=== PATIENT | female | born 1995 | race African-American/Black ===

== ENCOUNTER 2024-05-29 17:31 | Inpatient (IN) | payer OTHER ==
[2024-05-29 18:07] LABS: BASO % 0.4 % (0-2.0); EOS % 0.3 % (0-4.5); HEMATOCRIT 50.6 % (32.4-45.2); HEMOGLOBIN 16.2 GM/dL (10.7-15.3); MCH 23.2 pg (25.7-33.7); MEAN CELL VOLUME 72.5 fl (80-96); MEAN PLT VOLUME 8.5 fl (7.5-11.1); MONO % 13.6 % (3.8-10.2); NEUT % 63.7 % (42.8-82.8); PLATELET COUNT 397 10^3/uL (134-434); RBC 6.99 M/mm3 (3.60-5.2); RDW 14.1 % (11.6-15.6); WHITE BLOOD COUNT 8.9 K/mm3 (4.0-10.0)
[2024-05-29 18:08] LABS: VENOUS BASE EXCESS 4.9 mmol/L (-2-2); VENOUS O2 SATURATION 59.1 % (70-80); VENOUS PCO2 37.2 mmHg (38-52); VENOUS PH 7.496 (7.310-7.410)
[2024-05-29 18:33] LABS: LACTIC ACID 2.4 mmol/L (0.4-2.0)
[2024-05-29] MEDS: SODIUM CHLORIDE 1,000 ML IV STA (18:33)
[2024-05-29] MEDS ORDERED: ONDANSETRON 4 MG/2 ML VIAL ONE ×2 (19:05→23:17)
[2024-05-29] MEDS: ONDANSETRON 4 MG/2 ML VIAL IVPUSH ONE (19:09)
[2024-05-29 19:12] LABS: INR 2.06 (0.83-1.09); PROTHROMBIN TIME (PATIENT) 22.5 SEC (9.7-13.0)
[2024-05-29 19:15] LABS: ACTIVATED PTT 27.3 SECONDS (25.2-36.5)
[2024-05-29 19:16] LABS: POTASSIUM 5.2 mmol/L (3.5-5.1)
[2024-05-29 19:19] LABS: CALCIUM 8.8 mg/dL (8.5-10.1)
[2024-05-29 19:20] LABS: ALBUMIN 3.1 g/dl (3.4-5.0); BLOOD UREA NITROGEN 26.2 mg/dL (7-18)
[2024-05-29 19:24] LABS: LACTIC ACID 2.1 mmol/L (0.4-2.0)
[2024-05-29 19:29] LABS: TOT PROT 8.8 g/dl (6.4-8.2)
[2024-05-29] MEDS ORDERED: AZITHROMYCIN IVPB 500 MG/250 ML BAG IVPB ONE (19:57)
[2024-05-29] MEDS ORDERED: CEFTRIAXONE 1 G/50 ML PREMIX 50 ML IVPB ONE (19:57)
[2024-05-29] MEDS: CEFTRIAXONE 1 GM in DEXTROSE 5%-WATER - 100 ML IVPB ONE (19:57)
[2024-05-29] MEDS: AZITHROMYCIN IVPB 500 MG in DEXTROSE 5%-WATER - 250 ML IVPB ONE (20:20)
[2024-05-29] MEDS: SODIUM CHLORIDE 1,000 ML IV SCH (21:13)
[2024-05-29 22:15] LABS: ARTERIAL BLD GAS O2 SATURATION 99.7 % (95-98); ARTERIAL BLOOD GAS BASE EXCESS 0.3 mmol/L (-2-2); ARTERIAL BLOOD GAS pH 7.421 (7.350-7.450)
[2024-05-29 22:20] LABS: INR 2.06 (0.83-1.09); PROTHROMBIN TIME (PATIENT) 22.4 SEC (9.7-13.0)
[2024-05-29 22:30] LABS: ALLENS TEST POSITIVE
[2024-05-29] MEDS: SULFAMETHOXAZOLE 80 MG/TRIMETHOPRIM 16 MG/ML VIAL IVPB SCH (23:07)
[2024-05-29 23:08] LABS: ERYTHROCYTE SEDIMENTATION RATE 44 mm/hr (0-20)
[2024-05-29] MEDS: TRIMETHOPRIM IVPB SCH (23:14)
[2024-05-29] MEDS: DEXTROSE 5% IVPB SCH (23:14)
[2024-05-29] MEDS: SULFAMETHOXAZOLE IVPB SCH (23:14)
[2024-05-29] MEDS: WATER IVPB SCH (23:14)
[2024-05-29] MEDS ORDERED: ACETAMINOPHEN INJECTION 100 ML ONE (23:17)
[2024-05-30 00:03] LABS: HIV INTERPRETATION PRESUMPTIVE POSITIVE (NEGATIVE)
[2024-05-30] MEDS: ACETAMINOPHEN 1000 MG/100 ML BAG IVPB ONE (01:04)
[2024-05-30] MEDS: ONDANSETRON 4 MG/2 ML VIAL IVPUSH PRN (01:05)
[2024-05-30 02:30] LABS: URINE APPEARANCE CLEAR; URINE BILIRUBIN SMALL (NEGATIVE); URINE COLOR YELLOW; URINE GLUCOSE (UA) NEGATIVE (NEGATIVE)
[2024-05-30 02:31] LABS: PH,URINE 6.5 (5.0-8.0); URINE KETONE 15 mg/dl (NEGATIVE); URINE PROTEIN 1+ (NEGATIVE)
[2024-05-30 02:32] LABS: EPI CELLS 38.1 /uL (0-25.1); HYALINE CASTS 1.09 /uL (0-3.1); URINE BACTERIA 213.5 /uL (0-1359); URINE LEUK ESTERASE NEGATIVE (NEGATIVE); URINE NITRITE NEGATIVE (NEGATIVE)
[2024-05-30 02:43] LABS: COCAINE, UR NEGATIVE (NEGATIVE); METHADONE, UR NEGATIVE (NEGATIVE); OPIATES, URI NEGATIVE (NEGATIVE); URINE AMPHETAMINES NEGATIVE (NEGATIVE); URINE BARBITURATES NEGATIVE (NEGATIVE)
[2024-05-30 02:44] LABS: PHENCYCLIDINE,URINE NEGATIVE (NEGATIVE)
[2024-05-30 02:52] LABS: URINE BENZODIAZEPINES NEGATIVE (NEGATIVE)
[2024-05-30 07:53] LABS: SODIUM 135 mmol/L (136-145)
[2024-05-30 08:01] LABS: BLOOD UREA NITROGEN 14.6 mg/dL (7-18); CO2 28 mmol/L (21-32); GLUCOSE,RANDOM 138 mg/dL (74-106); MAGNESIUM 2.3 mg/dL (1.8-2.4)
[2024-05-30 08:03] LABS: BASO % 0.3 % (0-2.0); EOS % 1.8 % (0-4.5); HEMATOCRIT 35.5 % (32.4-45.2); LYMPH % 22.2 % (8-40); MCH 22.9 pg (25.7-33.7); MCHC 30.9 g/dl (32.0-36.0); MEAN CELL VOLUME 74.1 fl (80-96); MEAN PLT VOLUME 9.1 fl (7.5-11.1); MONO % 9.3 % (3.8-10.2); NEUT % 66.4 % (42.8-82.8); PLATELET COUNT 285 10^3/uL (134-434); RBC 4.79 M/mm3 (3.60-5.2); RDW 13.7 % (11.6-15.6); WHITE BLOOD COUNT 5.9 K/mm3 (4.0-10.0)
[2024-05-30 08:04] LABS: CREATININE 0.7 mg/dL (0.55-1.3); IRON SERUM 64 ug/dL (50-175); PHOSPHOROUS 3.6 mg/dL (2.5-4.9)
[2024-05-30 08:05] LABS: TOTAL IRON BINDING CAPACITY 209 ug/dL (250-450)
[2024-05-30] MEDS ORDERED: ONDANSETRON 4 MG/2 ML VIAL ONE ×2 (08:37→14:59)
[2024-05-30 08:41] LABS: LDH 205 U/L (84-246)
[2024-05-30 08:43] LABS: ANION GAP 5 mmol/L (4-13); CHLORIDE 102 mmol/L (98-107); POTASSIUM 2.9 mmol/L (3.5-5.1)
[2024-05-30] MEDS ORDERED: CEFTRIAXONE 1 G/50 ML PREMIX 50 ML IVPB ONE (09:14)
[2024-05-30] MEDS ORDERED: AZITHROMYCIN IVPB 500 MG/250 ML BAG IVPB ONE (09:15)
[2024-05-30] MEDS ORDERED: AZITHROMYCIN IVPB 500 MG in DEXTROSE 5%-WATER - 250 ML IVPB SCH (10:00)
[2024-05-30] MEDS: CEFTRIAXONE 1 G/50 ML PREMIX 50 ML IVPB SCH (10:00)
[2024-05-30] MEDS: AZITHROMYCIN IVPB 500 MG/250 ML BAG IVPB SCH (10:01)
[2024-05-30] MEDS: FLUCONAZOLE 100 MG TABLET (UD) PO SCH (10:59)
[2024-05-30] MEDS ORDERED: POTASSIUM CHLORIDE ORAL LIQUID 20 MEQ/15 ML ONE (11:01)
[2024-05-30] MEDS ORDERED: predniSONE 20 MG TABLET (UD) ONE (11:01)
[2024-05-30] MEDS ORDERED: ENOXAPARIN NA (PORCINE) 40 MG/0.4 ML DISP.SYRIN SQ ONE ×2 (11:02→12:44)
[2024-05-30] MEDS: POTASSIUM CHLORIDE ORAL LIQUID 20 MEQ/15 ML PO ONE (11:13)
[2024-05-30] MEDS: predniSONE 20 MG TABLET (UD) PO SCH (11:13)
[2024-05-30] MEDS: KCL 10 MEQ IVPB 10 MEQ/100 ML INFUS.BAG IVPB SCH (12:28)
[2024-05-30] MEDS: ENOXAPARIN NA (PORCINE) 40 MG/0.4 ML DISP.SYRIN SQ SCH (12:52)
[2024-05-30] MEDS ORDERED: KCL 10 MEQ IVPB 10 MEQ/100 ML INFUS.BAG IVPB ONE ×2 (14:43→17:51)
[2024-05-30] MEDS: SODIUM CHLORIDE 1,000 ML IV STA (20:21)
[2024-05-31 07:32] LABS: HEMATOCRIT 30.7 % (32.4-45.2); HEMOGLOBIN 9.4 GM/dL (10.7-15.3); MCH 22.8 pg (25.7-33.7); MCHC 30.7 g/dl (32.0-36.0); MEAN CELL VOLUME 74.1 fl (80-96); MEAN PLT VOLUME 9.3 fl (7.5-11.1); PLATELET COUNT 247 10^3/uL (134-434); RBC 4.14 M/mm3 (3.60-5.2); RDW 13.8 % (11.6-15.6); WHITE BLOOD COUNT 6.8 K/mm3 (4.0-10.0)
[2024-05-31 07:50] LABS: POTASSIUM 4.2 mmol/L (3.5-5.1)
[2024-05-31 07:55] LABS: BLOOD UREA NITROGEN 5.4 mg/dL (7-18)
[2024-05-31 07:58] LABS: CREATININE 0.5 mg/dL (0.55-1.3)
[2024-05-31 08:00] LABS: BILIRUBIN,TOTAL 0.4 mg/dL (0.2-1)
[2024-05-31 08:15] LABS: ALBUMIN 2.1 g/dl (3.4-5.0); TOT PROT 5.9 g/dl (6.4-8.2)
[2024-05-31] MEDS ORDERED: ALBUTEROL SO4 2.5/IPRATROPIUM 0.5 INH SOL 3 ML VIAL.NEB. NEB PRN (13:48)
[2024-05-31] MEDS ORDERED: guaiFENesin 600 MG TABLET.ER (FP) PO PRN (13:49)
[2024-05-31] MEDS: CHOLECALCIFEROL (VIT D3) 5000 UNITS (125 MCG) CAP PO SCH (15:38)
[2024-05-31 16:11] LABS: MYCOPLASMA PNEUMONIAE,IG G AB 139 U/mL (0-99); MYCOPLASMA PNEUMONIAE,IGM AB <770 U/mL (0-769)
[2024-05-31] MEDS ORDERED: MELATONIN 5 MG TABLETS PO PRN (22:49)
[2024-06-01 08:45] LABS: HEMATOCRIT 32.1 % (32.4-45.2); HEMOGLOBIN 9.6 GM/dL (10.7-15.3); MCH 22.4 pg (25.7-33.7); MEAN CELL VOLUME 74.6 fl (80-96); MEAN PLT VOLUME 9.3 fl (7.5-11.1); PLATELET COUNT 264 10^3/uL (134-434); RDW 14.1 % (11.6-15.6); WHITE BLOOD COUNT 9.6 K/mm3 (4.0-10.0)
[2024-06-01 08:58] LABS: ALBUMIN 2.2 g/dl (3.4-5.0); CALCIUM 8.5 mg/dL (8.5-10.1)
[2024-06-01 09:02] LABS: CREATININE 0.6 mg/dL (0.55-1.3)
[2024-06-01 09:03] LABS: BILIRUBIN,TOTAL 0.2 mg/dL (0.2-1); TOT PROT 6.1 g/dl (6.4-8.2)
[2024-06-01] MEDS: FLUCONAZOLE 100 MG TABLET (UD) PO SCH (10:09)
[2024-06-01] MEDS: ALBUTEROL SO4 2.5/IPRATROPIUM 0.5 INH SOL 3 ML VIAL.NEB. NEB SCH (11:50)
[2024-06-01] MEDS: METOCLOPRAMIDE HCL INJECTION 10 MG/2 ML VIAL IVPUSH PRN (13:34)
[2024-06-01] MEDS: FAMOTIDINE 20 MG TABLET PO SCH (15:57)
[2024-06-01] MEDS: SODIUM CHLORIDE 1,000 ML IV SCH (17:10)
[2024-06-01 20:07] LABS: ANTIGLOMERULAR BASEMENT MEN.AB <0.2 units (0.0-0.9); C-ANCA <1:20 titer (Neg:<1:20)
[2024-06-01] MEDS: guaiFENesin 600 MG TABLET.ER (FP) PO SCH (21:43)
[2024-06-02 09:56] LABS: HEMATOCRIT 34.1 % (32.4-45.2); HEMOGLOBIN 10.5 GM/dL (10.7-15.3); MCH 22.7 pg (25.7-33.7); MCHC 30.8 g/dl (32.0-36.0); MEAN CELL VOLUME 73.6 fl (80-96); MEAN PLT VOLUME 9.7 fl (7.5-11.1); PLATELET COUNT 278 10^3/uL (134-434); RBC 4.63 M/mm3 (3.60-5.2); RDW 14.3 % (11.6-15.6)
[2024-06-02 10:00] LABS: INR 1.9 (0.83-1.09); PROTHROMBIN TIME (PATIENT) 20.7 SEC (9.7-13.0)
[2024-06-02 10:19] LABS: POTASSIUM 5.8 mmol/L (3.5-5.1)
[2024-06-02 10:23] LABS: CALCIUM 8.5 mg/dL (8.5-10.1)
[2024-06-02 10:24] LABS: ALBUMIN 2.2 g/dl (3.4-5.0); BLOOD UREA NITROGEN 4.7 mg/dL (7-18)
[2024-06-02 10:27] LABS: CREATININE 0.7 mg/dL (0.55-1.3)
[2024-06-02 10:28] LABS: BILIRUBIN,TOTAL 0.4 mg/dL (0.2-1); TOT PROT 6.6 g/dl (6.4-8.2)
[2024-06-02 15:48] LABS: ARTERIAL BLD GAS O2 SATURATION 97.9 % (95-98); ARTERIAL BLOOD GAS BASE EXCESS -1.4 mmol/L (-2-2); ARTERIAL BLOOD GAS PO2 105.2 mmHg (80-100); ARTERIAL BLOOD GAS pH 7.405 (7.350-7.450)
[2024-06-02 15:50] LABS: ALLENS TEST POSITIVE
[2024-06-03 07:31] LABS: HEMATOCRIT 33.7 % (32.4-45.2); HEMOGLOBIN 10.4 GM/dL (10.7-15.3); MCH 22.6 pg (25.7-33.7); MCHC 30.9 g/dl (32.0-36.0); MEAN CELL VOLUME 73.4 fl (80-96); MEAN PLT VOLUME 8.9 fl (7.5-11.1); PLATELET COUNT 275 10^3/uL (134-434); RBC 4.59 M/mm3 (3.60-5.2); RDW 13.7 % (11.6-15.6); WHITE BLOOD COUNT 5.5 K/mm3 (4.0-10.0)
[2024-06-03 08:04] LABS: POTASSIUM 4.3 mmol/L (3.5-5.1)
[2024-06-03 08:08] LABS: ALBUMIN 2.3 g/dl (3.4-5.0); BLOOD UREA NITROGEN 5.2 mg/dL (7-18); MAGNESIUM 2.2 mg/dL (1.8-2.4)
[2024-06-03 08:11] LABS: CREATININE 0.6 mg/dL (0.55-1.3); PHOSPHOROUS 3.4 mg/dL (2.5-4.9)
[2024-06-03 08:12] LABS: BILIRUBIN,TOTAL 0.2 mg/dL (0.2-1); TOT PROT 6.7 g/dl (6.4-8.2)
[2024-06-03 08:27] LABS: INR 1.77 (0.83-1.09); PROTHROMBIN TIME (PATIENT) 19.5 SEC (9.7-13.0)
[2024-06-03 08:30] LABS: ACTIVATED PTT 25.4 SECONDS (25.2-36.5)
[2024-06-03] MEDS: BICTEGRAV/EMTRICIT/TENOFOV (BIKTARVY) 50-200-25 MG TABLET PO SCH (18:43)
[2024-06-04 09:02] LABS: HEMATOCRIT 34.6 % (32.4-45.2); HEMOGLOBIN 10.5 GM/dL (10.7-15.3); MCH 22.4 pg (25.7-33.7); MCHC 30.4 g/dl (32.0-36.0); MEAN CELL VOLUME 73.6 fl (80-96); PLATELET COUNT 291 10^3/uL (134-434); WHITE BLOOD COUNT 5.2 K/mm3 (4.0-10.0)
[2024-06-04 09:24] LABS: POTASSIUM 4.3 mmol/L (3.5-5.1)
[2024-06-04 09:34] LABS: CALCIUM 9.4 mg/dL (8.5-10.1)
[2024-06-04 09:35] LABS: ALBUMIN 2.5 g/dl (3.4-5.0); BLOOD UREA NITROGEN 6.6 mg/dL (7-18)
[2024-06-04 09:38] LABS: CREATININE 0.7 mg/dL (0.55-1.3)
[2024-06-04 09:40] LABS: BILIRUBIN,TOTAL 0.1 mg/dL (0.2-1); TOT PROT 6.9 g/dl (6.4-8.2)
[2024-06-04] MEDS: predniSONE 20 MG TABLET (UD) PO SCH (09:48)
[2024-06-05 08:48] LABS: HEMATOCRIT 37.5 % (32.4-45.2); HEMOGLOBIN 11.7 GM/dL (10.7-15.3); MCH 22.7 pg (25.7-33.7); MCHC 31.3 g/dl (32.0-36.0); MEAN CELL VOLUME 72.4 fl (80-96); MEAN PLT VOLUME 8.2 fl (7.5-11.1); PLATELET COUNT 280 10^3/uL (134-434); RBC 5.17 M/mm3 (3.60-5.2); RDW 13.9 % (11.6-15.6); WHITE BLOOD COUNT 4.4 K/mm3 (4.0-10.0)
[2024-06-05 09:05] LABS: POTASSIUM 3.5 mmol/L (3.5-5.1)
[2024-06-05 09:08] LABS: CALCIUM 9.7 mg/dL (8.5-10.1)
[2024-06-05 09:09] LABS: ALBUMIN 2.7 g/dl (3.4-5.0); MAGNESIUM 1.7 mg/dL (1.8-2.4)
[2024-06-05 09:12] LABS: CREATININE 0.6 mg/dL (0.55-1.3); PHOSPHOROUS 2.9 mg/dL (2.5-4.9)
[2024-06-05 09:13] LABS: BILIRUBIN,TOTAL 0.3 mg/dL (0.2-1); TOT PROT 7.1 g/dl (6.4-8.2)
[2024-06-05] MEDS: PANTOPRAZOLE 40 MG TABLET PO SCH (11:32)
[2024-06-05] MEDS: DEXTROSE 5%-0.45% SALINE 1,000 ML IV SCH (13:35)
[2024-06-05] MEDS: PROCHLORPERAZINE INJECTION 10 MG/2 ML VIAL IVPB PRN (13:42)
[2024-06-05] MEDS: INSULIN ASPART SLIDING SCALE (NOVOLOG) 1 VIAL SQ SCH (16:18)
[2024-06-05] MEDS: PANTOPRAZOLE SODIUM 40 MG VIAL IVPUSH SCH (16:20)
[2024-06-06 06:43] LABS: POTASSIUM 3.7 mmol/L (3.5-5.1)
[2024-06-06 06:45] LABS: CALCIUM 9.4 mg/dL (8.5-10.1)
[2024-06-06 06:46] LABS: ALBUMIN 2.6 g/dl (3.4-5.0); BLOOD UREA NITROGEN 4.5 mg/dL (7-18)
[2024-06-06 06:49] LABS: CREATININE 0.6 mg/dL (0.55-1.3)
[2024-06-06 06:51] LABS: BILIRUBIN,TOTAL 0.3 mg/dL (0.2-1)
[2024-06-06 07:15] LABS: HEMOGLOBIN 11.9 GM/dL (10.7-15.3); MCH 22.9 pg (25.7-33.7); MCHC 32.1 g/dl (32.0-36.0); MEAN CELL VOLUME 71.5 fl (80-96); PLATELET COUNT 262 10^3/uL (134-434); RBC 5.17 M/mm3 (3.60-5.2); RDW 13.6 % (11.6-15.6); WHITE BLOOD COUNT 3.4 K/mm3 (4.0-10.0)
[2024-06-06] MEDS: SODIUM CHLORIDE 1,000 ML IV SCH (16:53)
[2024-06-07 08:20] LABS: POTASSIUM 4.2 mmol/L (3.5-5.1)
[2024-06-07 08:22] LABS: CALCIUM 9.5 mg/dL (8.5-10.1); HEMATOCRIT 39.2 % (32.4-45.2); MCH 22.3 pg (25.7-33.7); MCHC 30.6 g/dl (32.0-36.0); MEAN CELL VOLUME 72.9 fl (80-96); MEAN PLT VOLUME 7.8 fl (7.5-11.1); PLATELET COUNT 211 10^3/uL (134-434); RBC 5.38 M/mm3 (3.60-5.2); RDW 13.9 % (11.6-15.6); WHITE BLOOD COUNT 3.9 K/mm3 (4.0-10.0)
[2024-06-07 08:24] LABS: BLOOD UREA NITROGEN 6.8 mg/dL (7-18)
[2024-06-07 08:25] LABS: ALBUMIN 2.7 g/dl (3.4-5.0)
[2024-06-07 08:26] LABS: MAGNESIUM 1.7 mg/dL (1.8-2.4)
[2024-06-07 08:27] LABS: CREATININE 0.5 mg/dL (0.55-1.3)
[2024-06-07 08:28] LABS: PHOSPHOROUS 2.1 mg/dL (2.5-4.9)
[2024-06-07 08:29] LABS: BILIRUBIN,TOTAL 0.5 mg/dL (0.2-1)
[2024-06-07 08:31] LABS: TOT PROT 7.2 g/dl (6.4-8.2)
[2024-06-07] MEDS: ONDANSETRON 4 MG/2 ML VIAL IVPUSH PRN (17:54)
[2024-06-07] MEDS: CODEINE SO4 30 MG TABLET PO PRN (17:54)
[2024-06-08] MEDS: ONDANSETRON 4 MG/2 ML VIAL IVPUSH PRN (02:38)
[2024-06-08] MEDS: ATOVAQUONE 750 MG/5 ML (UNIT-DOSE PACKAGING) PO SCH (08:47)
[2024-06-08 08:54] LABS: HEMATOCRIT 40.5 % (32.4-45.2); HEMOGLOBIN 12.8 GM/dL (10.7-15.3); MCH 22.8 pg (25.7-33.7); MCHC 31.6 g/dl (32.0-36.0); MEAN CELL VOLUME 72.2 fl (80-96); MEAN PLT VOLUME 7.5 fl (7.5-11.1); PLATELET COUNT 211 10^3/uL (134-434)
[2024-06-08 09:13] LABS: POTASSIUM 3.9 mmol/L (3.5-5.1)
[2024-06-08 09:16] LABS: CALCIUM 9.5 mg/dL (8.5-10.1)
[2024-06-08 09:17] LABS: BLOOD UREA NITROGEN 7.5 mg/dL (7-18); MAGNESIUM 1.8 mg/dL (1.8-2.4)
[2024-06-08 09:20] LABS: CREATININE 0.6 mg/dL (0.55-1.3); PHOSPHOROUS 1.9 mg/dL (2.5-4.9)
[2024-06-08 09:21] LABS: BILIRUBIN,TOTAL 0.4 mg/dL (0.2-1); TOT PROT 8.1 g/dl (6.4-8.2)
[2024-06-08] MEDS: NYSTATIN 500,000 UNITS/5 ML SUSPENSION PO ONE (12:04)
[2024-06-08] MEDS: POTASSIUM PHOSPHATE 30 MM in SODIUM CHLORIDE 500 ML IVPB ONE (12:06)
[2024-06-08] MEDS ORDERED: ONDANSETRON 4 MG/2 ML VIAL IVPB ONE (18:42)
[2024-06-08] MEDS: ONDANSETRON 4 MG/2 ML VIAL IVPUSH ONE (18:50)
[2024-06-08] MEDS: ONDANSETRON 4 MG/2 ML VIAL IVPUSH SCH (20:03)
[2024-06-09 08:17] LABS: BASO % 0.2 % (0-2.0); HEMATOCRIT 38.8 % (32.4-45.2); HEMOGLOBIN 12.1 GM/dL (10.7-15.3); LYMPH % 28.5 % (8-40); MCH 22.6 pg (25.7-33.7); MCHC 31.2 g/dl (32.0-36.0); MEAN CELL VOLUME 72.4 fl (80-96); MEAN PLT VOLUME 7.6 fl (7.5-11.1); MONO % 4.2 % (3.8-10.2); NEUT % 67.1 % (42.8-82.8); PLATELET COUNT 151 10^3/uL (134-434); RBC 5.36 M/mm3 (3.60-5.2); RDW 13.7 % (11.6-15.6); WHITE BLOOD COUNT 2.6 K/mm3 (4.0-10.0)
[2024-06-09 08:20] LABS: INR 1.4 (0.83-1.09); PROTHROMBIN TIME (PATIENT) 15.4 SEC (9.7-13.0)
[2024-06-09 08:40] LABS: POTASSIUM 4.2 mmol/L (3.5-5.1)
[2024-06-09 08:44] LABS: ALBUMIN 2.8 g/dl (3.4-5.0); BLOOD UREA NITROGEN 6.1 mg/dL (7-18); CALCIUM 9.4 mg/dL (8.5-10.1); MAGNESIUM 1.8 mg/dL (1.8-2.4)
[2024-06-09 08:48] LABS: CREATININE 0.5 mg/dL (0.55-1.3); PHOSPHOROUS 2.9 mg/dL (2.5-4.9)
[2024-06-09 08:49] LABS: BILIRUBIN,TOTAL 0.4 mg/dL (0.2-1); TOT PROT 7.4 g/dl (6.4-8.2)
[2024-06-09] MEDS ORDERED: predniSONE 10 MG TABLET (UD) PO ONE (10:00)
[2024-06-09] MEDS: predniSONE 10 MG TABLET (UD) PO SCH (12:22)
[2024-06-10] MEDS ORDERED: ACETAMINOPHEN 1000 MG/100 ML BAG IVPB PRN (00:29)
[2024-06-10 07:25] LABS: BASO % 0.5 % (0-2.0); EOS % 1.6 % (0-4.5); HEMATOCRIT 37.3 % (32.4-45.2); HEMOGLOBIN 11.7 GM/dL (10.7-15.3); LYMPH % 39.6 % (8-40); MCH 22.5 pg (25.7-33.7); MCHC 31.3 g/dl (32.0-36.0); MEAN CELL VOLUME 71.9 fl (80-96); MEAN PLT VOLUME 7.6 fl (7.5-11.1); MONO % 8.6 % (3.8-10.2); NEUT % 49.7 % (42.8-82.8); PLATELET COUNT 124 10^3/uL (134-434); RBC 5.19 M/mm3 (3.60-5.2); RDW 13.4 % (11.6-15.6); WHITE BLOOD COUNT 2.3 K/mm3 (4.0-10.0)
[2024-06-10 07:44] LABS: INR 1.42 (0.83-1.09); PROTHROMBIN TIME (PATIENT) 15.6 SEC (9.7-13.0)
[2024-06-10 07:50] LABS: ALBUMIN 2.8 g/dl (3.4-5.0); BLOOD UREA NITROGEN 8.6 mg/dL (7-18); CALCIUM 8.9 mg/dL (8.5-10.1)
[2024-06-10 07:51] LABS: MAGNESIUM 1.6 mg/dL (1.8-2.4)
[2024-06-10 07:53] LABS: CREATININE 0.6 mg/dL (0.55-1.3); PHOSPHOROUS 3.4 mg/dL (2.5-4.9)
[2024-06-10 07:54] LABS: BILIRUBIN,TOTAL 0.6 mg/dL (0.2-1); TOT PROT 7.3 g/dl (6.4-8.2)
[2024-06-10] MEDS: predniSONE 20 MG TABLET (UD) PO SCH (09:18)
[2024-06-10] MEDS ORDERED: predniSONE 20 MG TABLET (UD) PO ONE (10:00)
[2024-06-10] MEDS: MAGNESIUM 1GM/D5W 100ML - 100 ML IVPB IVPB ONE (10:06)
[2024-06-10 14:29] VITALS: TEMP 98.6
[2024-06-10 14:57] VITALS: RESP 20
[2024-06-10 15:31] VITALS: BP 131/97; PULSE 104
[2024-06-10 16:29] VITALS: BMI 29.9
[2024-06-10] MEDS ORDERED: PANTOPRAZOLE 40 MG TABLET PO SCH (22:00)
[2024-06-11] MEDS ORDERED: predniSONE 10 MG TABLET (UD) PO SCH (10:00)
[2024-06-11] MEDS ORDERED: predniSONE 10 MG TABLET (UD) PO ONE (10:00)
== END 2024-06-10 18:55 | disposition home or self-care (01) | DRG 890 ==
LOC: JER 17:31 → JERBED 21:28 → J4S 05-30 18:14
PROVIDERS: ADMIT Internal Medicine; ATTEND Internal Medicine
PROC: 0DB68ZX Excision of Stomach, Via Natural or Artificial Opening Endoscopic, Diagnostic (ICD-10-PCS; 2024-06-10)
PROC: 0DB58ZX Excision of Esophagus, Via Natural or Artificial Opening Endoscopic, Diagnostic (ICD-10-PCS; principal; 2024-06-10 11:00)
DX: A41.9 Sepsis, unspecified organism (principal); B20 Human immunodeficiency virus [HIV] disease; J96.01 Acute respiratory failure with hypoxia; E46 Unspecified protein-calorie malnutrition; B37.0 Candidal stomatitis; B59 Pneumocystosis; J18.9 Pneumonia, unspecified organism; E83.52 Hypercalcemia; E87.20 Acidosis, unspecified; D50.9 Iron deficiency anemia, unspecified; D63.8 Anemia in other chronic diseases classified elsewhere; E87.6 Hypokalemia; G47.00 Insomnia, unspecified; K21.9 Gastro-esophageal reflux disease without esophagitis; R07.89 Other chest pain; R53.83 Other fatigue; R63.0 Anorexia; R63.4 Abnormal weight loss; R74.01 Elevation of levels of liver transaminase levels; K44.9 Diaphragmatic hernia without obstruction or gangrene; K20.90 Esophagitis, unspecified without bleeding
CPT/HCPCS: 0241U-QW; 36415; 36600; 70450-TC; 71045-TC-FY; 71275-TC; 74018-TC-FY; 74177-TC; 76705-TC; 80048; 80053; 80307; 81003; 81257; 82306; 82533; 82728; 82803; 82962; 83516; 83520; 83540; 83550; 83605; 83615; 83690; 83735; 83970; 84100; 84132; 84443; 84484; 84703; 85025; 85027; 85610; 85651; 85730; 86038; 86140; 86256; 86359; 86360; 86480; 86738; 87070; 87077; 87081; 87086; 87205; 87281; 87305; 87389; 87536; 87899; 88305-TC; 93005; 93010; 93306-TC; 94010; 94640; 97116-GP; 97161-GP; 99285-25; J0131; Q9967